=== PATIENT | female | born 1985 | race Caucasian/White ===

== ENCOUNTER → 2016-09-07 | Outpatient (CLI) | payer OTHER | LOC: MW.LAB 14:16 | PROVIDERS: ATTEND Obstetrics & Gynecology Reproductive Endocrinology | DX: Z31.7 Encounter for procreative management and counseling for gestational carrier (principal) | CPT/HCPCS: 36415; 84144 ==

== ENCOUNTER 2017-05-23 17:24 | Inpatient (IN) | payer BC ==
[2017-05-23] MEDS ORDERED: Methylergonovine 0.2 MG/1 ML Amp IM PRN (17:53)
[2017-05-23] MEDS ORDERED: Lidocaine 1% 50 ML MDV INJECT PRN (17:53)
[2017-05-23] MEDS ORDERED: Misoprostol 200 MCG Tab PO PRN (17:53)
[2017-05-23] MEDS ORDERED: Carboprost Tromethamine 250 MCG/1 ML Amp IM PRN (17:53)
[2017-05-23] MEDS ORDERED: Terbutaline 1 MG/ML SDV SUBCUT PRN (17:53)
[2017-05-23] MEDS ORDERED: Sodium Chloride 0.9% 10 ML Syringe FLUSH PRN (17:53)
[2017-05-23] MEDS ORDERED: Butorphanol 1 MG/ML SDV IVPUSH PRN (17:53)
[2017-05-23] MEDS ORDERED: Sodium Chloride 0.9% 2.5 ML Syringe FLUSH PRN (17:53)
[2017-05-23] MEDS ORDERED: Water For Irrigation,Sterile 1,000 ML Container IRR PRN (17:53)
[2017-05-23] MEDS ORDERED: Oxytocin/0.9 % Sodium Chloride 30 UNIT/500 ML BAG IV SCH ×2 (18:00)
[2017-05-23] MEDS ORDERED: Misoprostol 25 MCG (1/4 of 100 MCG) Tab VAG SCH (18:30)
[2017-05-23] MEDS ORDERED: Misoprostol 25 MCG (1/4 of 100 MCG) Tab VAG PRN (22:30)
[2017-05-24 00:14] LABS: CHLORIDE,CL 107 mmol/L (98-110); SODIUM,NA 138 mmol/L (136-146)
[2017-05-24] MEDS: Lactated Ringers 1,000 ML IV SCH ×2 (00:58→01:48)
[2017-05-24] MEDS ORDERED: fentaNYL 100 MCG/2 ML SDV ONE ×2 (01:05→06:08)
--- NOTE | 2017-05-24 01:56 | PCM.PREANE ---
Preanesthetic Assessment - Anesthesia/Transfusion/Family Hx Anesthesia History: Prior Anesthesia Without Reaction Family History of Anesthesia Reaction: No Transfusion History: Prior Transfusion Without Reaction - Review of Systems General: No Symptoms Pulmonary: No Symptoms Cardiovascular: No Symptoms Gastrointestinal: No Symptoms Neurological: No Symptoms Other: Reports: None - Physical Assessment NPO Status Date: 05/24/17 NPO Status Time: 01:52 (sips/chips) Height: 5 ft 3 in Weight: 208 lb ASA Class: 2 Mental Status: Alert & Oriented x3 Airway Class: Mallampati = 2 Dentition: Reports: Normal Dentition Thyro-Mental Finger Breadths: 3 Mouth Opening Finger Breadths: 3 ROM/Head Extension: Full Lungs: Clear to Auscultation, Normal Respiratory Effort Cardiovascular: Regular Rate, Regular Rhythm - Lab Values: Laboratory Last Values WBC 10.16 K/uL (4.0-11.0) 05/23/17 18:21 RBC 4.41 M/uL (4.30-5.90) 05/23/17 18:21 Hgb 12.3 g/dL (12.0-16.0) 05/23/17 18:21 Hct 36.7 % (36.0-46.0) 05/23/17 18:21 MCV 83.2 fL (80.0-98.0) 05/23/17 18:21 MCH 27.9 pg (27.0-32.0) 05/23/17 18:21 MCHC 33.5 g/dL (31.0-37.0) 05/23/17 18:21 RDW Std Deviation 44.8 fl (28.0-62.0) 05/23/17 18:21 RDW Coeff of Rene 15 % (11.0-15.0) 05/23/17 18:21 Plt Count 218 K/uL (150-400) 05/23/17 18:21 MPV 10.10 fL (7.40-12.00) 05/23/17 18:21 Nucleated RBC % 0.0 /100WBC 05/23/17 18:21 Nucleated RBCs # 0 K/uL 05/23/17 18:21 Sodium 138 mmol/L (136-146) 05/23/17 18:21 Potassium 3.6 mmol/L (3.5-5.1) 01/31/18 18:21 Chloride 107 mmol/L (98-110) 05/23/17 18:21 Carbon Dioxide 19 mmol/L (21-31) L 05/23/17 18:21 BUN 7 mg/dL (6.0-23.0) 05/23/17 18:21 Creatinine 0.6 mg/dL (0.6-1.5) 05/23/17 18:21 Est Cr Clr Drug Dosing 111.35 mL/min 05/23/17 18:21 Estimated GFR (MDRD) > 60.0 ml/min 05/23/17 18:21 Glucose 110 mg/dL (60-110) 05/23/17 18:21 Uric Acid 6.0 mg/dL (2.1-6.2) 05/23/17 18:21 Calcium 9.6 mg/dL (8.8-10.8) 05/23/17 18:21 Total Bilirubin 0.2 mg/dL (0.1-1.5) 05/23/17 18:21 AST 17 IU/L (5-40) 05/23/17 18:21 ALT 10 IU/L (8-54) 05/23/17 18:21 Alkaline Phosphatase 195 (40-150) H 05/23/17 18:21 Total Protein 6.8 g/dL (6.0-8.0) 05/23/17 18:21 Albumin 3.6 g/dL (3.5-5.0) 05/23/17 18:21 Globulin 3.2 g/dL (2.0-3.5) 05/23/17 18:21 Albumin/Globulin Ratio 1.1 (1.3-2.8) L 05/23/17 18:21 Blood Type B NEGATIVE 05/23/17 18:21 Antibody Screen NEGATIVE 05/23/17 18:21 - Allergies Allergies/Adverse Reactions: Allergies Allergy/AdvReac Type Severity Reaction Status Date / Time ciprofloxacin [From Cipro] Allergy Vomiting Verified 05/23/17 17:52 - Blood Blood Available: No Product(s) Available: None - Anesthesia Plan Free Text/Narrative:: Labor Epidural - pt states her last one req uired "6 sticks" - level L2-3 was successful this time, but her back was very tight and she was very deep (7.5 cm) - Acknowledgements Anesthesia Type Planned: Epidural Pt an Appropriate Candidate for the Planned Anesthesia: Yes Alternatives and Risks of Anesthesia Discussed w Pt/Guardian: Yes Pt/Guardian Understands and Agrees with Anesthesia Plan: Yes PreAnesthesia Questionnaire Cardiovascular History: Reports: Hypertension Gastrointestinal History: Reports: GERD Genitourinary History: Reports: STD [employer]ING [employer] MANAGER History: Reports: , Spontaneous Neurological History: Reports: Migraines Hematologic History: Reports: Anemia - Infectious Disease History Infectious Disease History: Reports: Chicken Pox - SUBSTANCE USE Smoking Status *Q: Never Smoker Recreational Drug Use History: No - CURRENT (IN HOUSE) MEDS Current Meds: Current Medications Butorphanol Tartrate (Stadol) 1 mg IVPUSH Q1H PRN PRN Reason: Pain Carboprost Tromethamine (Hemabate Ds) 250 mcg IM ASDIRECTED PRN PRN Reason: Post Hemorrhage Lactated Ringer's (Ringers, Lactated) 1,000 mls @ 150 mls/hr IV ASDIRECTED SERGEY Last Admin: 05/24/17 01:48 Dose: 999 mls/hr Oxytocin/Sodium Chloride (Oxytocin 30 Unit/500 Ml-Ns) 30 unit in 500 mls @ 999 mls/hr IV TITRATE SERGEY Oxytocin/Sodium Chloride (Oxytocin 30 Unit/500 Ml-Ns) 30 unit in 500 mls @ 2 mls/hr IV TITRATE SERGEY; 2 MUNITS/MIN PRN Reason: Protocol Lidocaine HCl (Xylocaine 1%) 50 ml INJECT .ONCE PRN PRN Reason: Laceration repair Methylergonovine Maleate (Methergine) 0.2 mg IM ASDIRECTED PRN PRN Reason: Post Hemorrhage Misoprostol (Cytotec) 200 mcg PO .ONCE PRN PRN Reason: Post Hemorrhage Misoprostol (Cytotec) 25 mcg VAG .ONCE SERGEY Last Admin: 05/23/17 18:38 Dose: 25 mcg Misoprostol (Cytotec) 25 mcg VAG Q4H PRN PRN Reason: Cervical Ripening Sodium Chloride (Saline Flush) 10 ml FLUSH ASDIRECTED PRN PRN Reason: Keep Vein Open Sodium Chloride (Saline Flush) 2.5 ml FLUSH ASDIRECTED PRN PRN Reason: Keep Vein Open Sterile Water (Sterile Water For Irrigation) 1,000 ml IRR ASDIRECTED PRN PRN Reason: delivery Terbutaline Sulfate (Brethine) 0.25 mg SUBCUT ASDIRECTED PRN PRN Reason: Tacysystole Discontinued Medications Fentanyl (Sublimaze) Confirm Administered Dose 100 mcg .ROUTE .[facility] ONE Stop: 05/24/17 01:06
[2017-05-24] MEDS ORDERED: Lidocaine 1% 2 ML ONE (06:08)
--- NOTE | 2017-05-24 06:37 | PCM.SN ---
- Free Text/Narrative Note: Anesthesia Note: When epidural initiated, pt seemed sensitive to medication, thus a rate of 5mL/ hr was infusing per pump and pt was comfortable. Discussed with pt if she had to use her bolus button more than once to have her nurse call me. 0530 - Arrive to pt stating 8/10 pain with contractions in her "vagina" - initially increased rate to 7mL/hr and bolused per pump a total of 17mL over 30 min. Pt also progressing rather quickly in this time period and pt verbalizing that she is not getting good relief. 0610 - Total of 100 mcg Fentanyl and 20 mg lidocaine per epidural - pt verbalizes that she is beginning to feel some relief. Also some difficulty d/t pt positioning for heart tones. 0635 - Additional bolus per pump - total of 10mL 0.125% Bupiv. Anesthesia at bedside continuously. Viable baby girl @ 0654.
[2017-05-24] MEDS ORDERED: Bisacodyl 10 MG Supp RECTAL PRN (07:24)
[2017-05-24] MEDS ORDERED: Acetaminophen 500 MG Tab PO PRN (07:24)
[2017-05-24] MEDS ORDERED: Ibuprofen 400 MG Tab PO PRN (07:24)
[2017-05-24] MEDS ORDERED: Lanolin 100% Cream 7 GM Tube TOP PRN (07:24)
[2017-05-24] MEDS ORDERED: Benzocaine/Menthol 20%-0.5% Spray 78 GM Cannister TOP PRN (07:24)
[2017-05-24] MEDS ORDERED: Witch Hazel Medicated Pads 40/Jar TOP PRN (07:24)
[2017-05-24] MEDS ORDERED: Docusate Sodium 100 MG Cap PO PRN (07:24)
[2017-05-24] MEDS: Ibuprofen 800 MG Tab PO PRN ×2 (08:04→18:07)
[2017-05-24] MEDS: oxyCODONE 5 MG Tab PO PRN ×4 (08:05→18:08)
[2017-05-24] MEDS ORDERED: Ondansetron 4 MG/2 ML SDV IVPUSH PRN (10:35)
[2017-05-24] MEDS: Acetaminophen 500 MG Tab PO PRN (11:39)
--- NOTE | 2017-05-24 14:49 | OR ---
SURGEON: Paola Nielson MD DATE OF PROCEDURE: 05/24/2017 PREOPERATIVE DIAGNOSES: 1. Intrauterine at 39 weeks gestation. 2. Elective induction of labor. POSTOPERATIVE DIAGNOSES: 1. Intrauterine at 39 weeks gestation. 2. Elective induction of labor. 3. Delivered. PROCEDURE: Spontaneous vaginal delivery. ANESTHESIA: Epidural. ESTIMATED BLOOD LOSS: 250 mL. COMPLICATIONS: None. DISPOSITION: Mother and baby are stable. FINDINGS: Female , weight 2750 g, scores 9 and 9 at 1 and 5 minutes respectively. Grossly normal placenta with 3-vessel cord. Intact perineum. Left labial hematoma approximately 4 x 3 cm. BRIEF HISTORY: Sri is a 31-year-old G5, P2-0-0-2, who was admitted overnight for induction of labor. She is a gestational carrier and her cause has remained uncomplicated with a negative GBS status. On admission last evening, she was 1 to 2 cm dilated and received one dose of Cytotec, after which 6 hours after she progressed to 2 to 3 cm and was requesting epidural, which she received. After the epidural was inserted, oxytocin was commenced. Two hours after, spontaneous rupture of membranes occurred with clear amniotic fluid noted. At that time, she was 3 to 4 cm. Thereafter, she did make very rapid change and progressed to 9 cm within next 2 hours. With the rapid change and the rapid descent of the head into the pelvis, there were very deep variable decelerations down to the 60s lasting over 1 to 2 minutes with recovered back to original baseline. The oxytocin infusion, which was at 8 milliunits at that time, was stopped. The maternal position was changed and oxygen was commenced. I was notified and upon my arrival, I examined her, she had an anterior lip, which I was able to reduce easily and she commenced active pushing. She was then set up for delivery in modified dorsal lithotomy position. DESCRIPTION OF PROCEDURE: She had spontaneous vaginal delivery of a live female in occipital anterior position. Loose nuchal cord was reduced at the delivery, clear amniotic fluid over an intact perineum. Anterior and posterior shoulder and the rest of the baby were delivered without difficulty. Baby was vigorous and cried spontaneously at . The oropharynx and the nostrils were bulb suctioned on the perineum. Delayed cord clamping was performed and the cord was subsequently cut by the father of the baby. The infant was then handed over to nursery nurse. With delivery of the , oxytocin infusion was recommenced, titration for active management of third stage of labor. Cord blood and gas samples were obtained. The placenta was delivered by controlled cord traction appeared to be complete and intact. Vigorous uterine massage was performed. The uterus was found to be well contracted at the umbilicus. Examination of the perineum revealed no lacerations, but there was a left labial hematoma measuring about 4 x 3 cm. It was noted to be stable and not expanding, so it was left well alone. The patient tolerated the procedure well. Sponge, instrument, and needle counts were correct at the end of the delivery. ADUMVIV / MODL /[id number] MTDD
[2017-05-24] MEDS: Ondansetron 4 MG Tab.DIS PO PRN (18:07)
[2017-05-25] MEDS: Ibuprofen 800 MG Tab PO PRN (01:24)
[2017-05-25 06:12] LABS: CHLORIDE,CL 109 mmol/L (98-110); SODIUM,NA 139 mmol/L (136-146)
[2017-05-25] MEDS: Acetaminophen 500 MG Tab PO PRN (08:08)
--- NOTE | 2017-05-25 08:08 | PCM.PNPP ---
<Adriana Cantu - Last Filed: 05/25/17 08:02> - General Info Date of Service: 05/25/17 Functional Status: Reports: Pain Controlled, Tolerating Diet, Ambulating, Urinating - Review of Systems General: Denies: Fever, Weakness, Fatigue HEENT: Reports: Headaches Pulmonary: Denies: Shortness of Breath, Pleuritic Chest Pain, Cough Cardiovascular: Denies: Chest Pain, Palpitations, Dyspnea on Exertion Gastrointestinal: Denies: Abdominal Pain Genitourinary: Denies: Dysuria - General Info Date of Service: 05/25/17 - Patient Data Vital Signs - Most Recent: Last Vital Signs Temp 36.4 C 05/25/17 05:12 Pulse 80 05/25/17 05:12 Resp 17 05/25/17 05:12 BP 123/72 05/25/17 05:12 Pulse Ox 97 05/25/17 05:12 Weight - Most Recent: 94.347 kg Lab Results - Last 24 Hours: Laboratory Results - last 24 hr 05/24/17 05/24/17 05/25/17 Range/Units 06:54 08:33 05:09 WBC 8.74 (4.0-11.0) K/uL RBC 3.48 L (4.30-5.90) M/uL Hgb 9.7 L (12.0-16.0) g/dL Hct 29.0 L (36.0-46.0) % MCV 83.3 (80.0-98.0) fL MCH 27.9 (27.0-32.0) pg MCHC 33.4 (31.0-37.0) g/dL RDW Std Deviation 45.1 (28.0-62.0) fl RDW Coeff of Rene 15 (11.0-15.0) % Plt Count 151 (150-400) K/uL MPV 9.50 (7.40-12.00) fL Neut % (Auto) 65.7 (48.0-80.0) % Lymph % (Auto) 26.2 (16.0-40.0) % Bonner % (Auto) 6.3 (0.0-15.0) % Eos % (Auto) 1.7 (0.0-7.0) % Baso % (Auto) 0.1 (0.0-1.5) % Neut # (Auto) 5.7 (1.4-5.7) K/uL Lymph # (Auto) 2.3 (0.6-2.4) K/uL Bonner # (Auto) 0.6 (0.0-0.8) K/uL Eos # (Auto) 0.2 (0.0-0.7) K/uL Baso # (Auto) 0.0 (0.0-0.1) K/uL Nucleated RBC % 0.0 /100WBC Nucleated RBCs # 0 K/uL Cord ABG pH 7.224 (7.18-7.38) Cord ABG Base Excess -6 (-10--2) Cord VBG pH 7.301 (7.25-7.45) Cord VBG Base Excess -6 (-10--2) Sodium (136-146) mmol/L Potassium (3.5-5.1) mmol/L Chloride (98-110) mmol/L Carbon Dioxide (21-31) mmol/L BUN (6.0-23.0) mg/dL Creatinine (0.6-1.5) mg/dL Est Cr Clr Drug Dosing mL/min Estimated GFR (MDRD) ml/min Glucose (60-110) mg/dL Calcium (8.8-10.8) mg/dL Total Bilirubin (0.1-1.5) mg/dL AST (5-40) IU/L ALT (8-54) IU/L Alkaline Phosphatase (40-150) Total Protein (6.0-8.0) g/dL Albumin (3.5-5.0) g/dL Globulin (2.0-3.5) g/dL Albumin/Globulin Ratio (1.3-2.8) Screen NEGATIVE (NEGATIVE) RhIG Candidate? YES Rhogam Indicated YES, BABY RH POS H 05/25/17 Range/Units 05:09 WBC (4.0-11.0) K/uL RBC (4.30-5.90) M/uL Hgb (12.0-16.0) g/dL Hct (36.0-46.0) % MCV (80.0-98.0) fL MCH (27.0-32.0) pg MCHC (31.0-37.0) g/dL RDW Std Deviation (28.0-62.0) fl RDW Coeff of Rene (11.0-15.0) % Plt Count (150-400) K/uL MPV (7.40-12.00) fL Neut % (Auto) (48.0-80.0) % Lymph % (Auto) (16.0-40.0) % Bonner % (Auto) (0.0-15.0) % Eos % (Auto) (0.0-7.0) % Baso % (Auto) (0.0-1.5) % Neut # (Auto) (1.4-5.7) K/uL Lymph # (Auto) (0.6-2.4) K/uL Bonner # (Auto) (0.0-0.8) K/uL Eos # (Auto) (0.0-0.7) K/uL Baso # (Auto) (0.0-0.1) K/uL Nucleated RBC % /100WBC Nucleated RBCs # K/uL Cord ABG pH (7.18-7.38) Cord ABG Base Excess (-10--2) Cord VBG pH (7.25-7.45) Cord VBG Base Excess (-10--2) Sodium 139 (136-146) mmol/L Potassium 4.4 (3.5-5.1) mmol/L Chloride 109 (98-110) mmol/L Carbon Dioxide 22 (21-31) mmol/L BUN 5 L (6.0-23.0) mg/dL Creatinine 0.6 (0.6-1.5) mg/dL Est Cr Clr Drug Dosing 111.35 mL/min Estimated GFR (MDRD) > 60.0 ml/min Glucose 70 (60-110) mg/dL Calcium 8.4 L (8.8-10.8) mg/dL Total Bilirubin 0.1 (0.1-1.5) mg/dL AST 20 (5-40) IU/L ALT 11 (8-54) IU/L Alkaline Phosphatase 131 (40-150) Total Protein 5.1 L (6.0-8.0) g/dL Albumin 2.7 L (3.5-5.0) g/dL Globulin 2.4 (2.0-3.5) g/dL Albumin/Globulin Ratio 1.1 L (1.3-2.8) Screen (NEGATIVE) RhIG Candidate? Rhogam Indicated Med Orders - Current: Current Medications Acetaminophen (Tylenol Extra Strength) 500 mg PO Q4H PRN PRN Reason: Pain Acetaminophen (Tylenol Extra Strength) 1,000 mg PO Q4H PRN PRN Reason: Pain Last Admin: 05/24/17 11:39 Dose: 1,000 mg Benzocaine/Menthol (Dermoplast Pain Relief 20%-0.5% [place]) 78 gm TOP ASDIRECTED PRN PRN Reason: Perineal Comfort Measure Last Admin: 05/24/17 16:04 Dose: 1 tub Bisacodyl (Dulcolax) 10 mg RECTAL .ONCE PRN PRN Reason: Constipation Docusate Sodium (Colace) 100 mg PO BID PRN PRN Reason: Constipation Emollient Ointment (Lansinoh Hpa) 0 gm TOP ASDIRECTED PRN PRN Reason: Sore Nipples Ibuprofen (Motrin) 400 mg PO Q4H PRN PRN Reason: Pain Ibuprofen (Motrin) 800 mg PO Q6H PRN PRN Reason: Pain Last Admin: 05/25/17 01:24 Dose: 800 mg Ondansetron HCl (Zofran Odt) 4 mg PO Q6H PRN PRN Reason: Nausea/Vomiting Last Admin: 05/24/17 18:07 Dose: 4 mg Oxycodone HCl (Oxycodone) 5 mg PO Q2H PRN PRN Reason: Pain Last Admin: 05/24/17 18:08 Dose: 5 mg Witch Keesha (Tucks) 1 pad TOP ASDIRECTED PRN PRN Reason: comfort care Last Admin: 05/24/17 16:03 Dose: 1 applicful Discontinued Medications Butorphanol Tartrate (Stadol) 1 mg IVPUSH Q1H PRN PRN Reason: Pain Carboprost Tromethamine (Hemabate Ds) 250 mcg IM ASDIRECTED PRN PRN Reason: Post Hemorrhage Fentanyl (Sublimaze) Confirm Administered Dose 100 mcg .ROUTE .[facility] ONE Stop: 05/24/17 01:06 Fentanyl (Sublimaze) Confirm Administered Dose 100 mcg .ROUTE .[facility] ONE Stop: 05/24/17 06:09 Lactated Ringer's (Ringers, Lactated) 1,000 mls @ 150 mls/hr IV ASDIRECTED SERGEY Last Admin: 05/24/17 01:48 Dose: 999 mls/hr Oxytocin/Sodium Chloride (Oxytocin 30 Unit/500 Ml-Ns) 30 unit in 500 mls @ 999 mls/hr IV TITRATE SERGEY Oxytocin/Sodium Chloride (Oxytocin 30 Unit/500 Ml-Ns) 30 unit in 500 mls @ 2 mls/hr IV TITRATE SERGEY; 2 MUNITS/MIN PRN Reason: Protocol Last Titration: 05/24/17 04:07 Dose: 8 munits/min, 8 mls/hr Lidocaine HCl (Xylocaine-Mpf 1%) Confirm Administered Dose 2 mls @ as directed .ROUTE .[facility] ONE Stop: 05/24/17 06:09 Lidocaine HCl (Xylocaine 1%) 50 ml INJECT .ONCE PRN PRN Reason: Laceration repair Methylergonovine Maleate (Methergine) 0.2 mg IM ASDIRECTED PRN PRN Reason: Post Hemorrhage Misoprostol (Cytotec) 200 mcg PO .ONCE PRN PRN Reason: Post Hemorrhage Misoprostol (Cytotec) 25 mcg VAG .ONCE SERGEY Last Admin: 05/23/17 18:38 Dose: 25 mcg Misoprostol (Cytotec) 25 mcg VAG Q4H PRN PRN Reason: Cervical Ripening Ondansetron HCl (Zofran) 4 mg IVPUSH Q6H PRN PRN Reason: Nausea/Vomiting Last Admin: 05/24/17 11:02 Dose: 4 mg Sodium Chloride (Saline Flush) 10 ml FLUSH ASDIRECTED PRN PRN Reason: Keep Vein Open Sodium Chloride (Saline Flush) 2.5 ml FLUSH ASDIRECTED PRN PRN Reason: Keep Vein Open Sterile Water (Sterile Water For Irrigation) 1,000 ml IRR ASDIRECTED PRN PRN Reason: delivery Terbutaline Sulfate (Brethine) 0.25 mg SUBCUT ASDIRECTED PRN PRN Reason: Tacysystole - Infant Interaction Disposition, : Not Applicable Support Person: , Other (see below) - Recovery Exam Fundal Tone: Firm Fundal Level: 2 Fingerbreadths Below Umbilicus Fundal Placement: Midline Lochia Amount: Scant Lochia Color: Rubra/Red Perineum Description: Intact, Minimal Bruising/Swelling, Edematous, Hematoma ( left labia hematoma is stable ) Episiotomy/Laceration: None Urinary Elimination: Voided - Exam General: Alert, Oriented Lungs: Clear to Auscultation, Normal Respiratory Effort Cardiovascular: Regular Rate, Regular Rhythm GI/Abdominal Exam: Normal Bowel Sounds, No Distention Extremities: Normal Inspection, Pedal Edema (trace) Skin: Warm, Dry, Intact - Problem List & Annotations (1) Vaginal delivery SNOMED Code(s): 791978976 Code(s): O80 - ENCOUNTER FOR FULL-TERM UNCOMPLICATED DELIVERY Status: Acute Current Visit: Yes - Problem List Review Problem List Initiated/Reviewed/Updated: Yes - Assessment Assessment:: PPD #1 s/p . Patient complains of mild frontal headache. Vital signs are reassuring this AM. Denies vision changes or mid-epigastric pain. Will obtain cath UA. If normal discharge home today. - Plan Plan:: Continue routine post- cares. If UA is normal, discharge home today. Nothing in the vagina for 6 weeks. Can use OTC ibuprofen/tylenol as needed for pain. Continue PNV. Instructed patient to call if she develops fever greater than 101 or bleeding through a large pad an hour. BP check in 1 week. <Christine Mcmillan - Last Filed: 05/25/17 10:19> - Patient Data Vital Signs - Most Recent: Last Vital Signs Temp 36.4 C 05/25/17 05:12 Pulse 80 05/25/17 05:12 Resp 17 05/25/17 05:12 BP 123/72 05/25/17 05:12 Pulse Ox 97 05/25/17 05:12 I&O - Last 24 Hours: Intake & Output 05/24/17 05/25/17 05/25/17 22:59 06:59 14:59 Intake Total 0 Balance 0 Lab Results - Last 24 Hours: Laboratory Results - last 24 hr 05/24/17 05/24/17 05/25/17 Range/Units 06:54 08:33 05:09 WBC 8.74 (4.0-11.0) K/uL RBC 3.48 L (4.30-5.90) M/uL Hgb 9.7 L (12.0-16.0) g/dL Hct 29.0 L (36.0-46.0) % MCV 83.3 (80.0-98.0) fL MCH 27.9 (27.0-32.0) pg MCHC 33.4 (31.0-37.0) g/dL RDW Std Deviation 45.1 (28.0-62.0) fl RDW Coeff of Rene 15 (11.0-15.0) % Plt Count 151 (150-400) K/uL MPV 9.50 (7.40-12.00) fL Neut % (Auto) 65.7 (48.0-80.0) % Lymph % (Auto) 26.2 (16.0-40.0) % Bonner % (Auto) 6.3 (0.0-15.0) % Eos % (Auto) 1.7 (0.0-7.0) % Baso % (Auto) 0.1 (0.0-1.5) % Neut # (Auto) 5.7 (1.4-5.7) K/uL Lymph # (Auto) 2.3 (0.6-2.4) K/uL Bonner # (Auto) 0.6 (0.0-0.8) K/uL Eos # (Auto) 0.2 (0.0-0.7) K/uL Baso # (Auto) 0.0 (0.0-0.1) K/uL Nucleated RBC % 0.0 /100WBC Nucleated RBCs # 0 K/uL Cord ABG pH 7.224 (7.18-7.38) Cord ABG Base Excess -6 (-10--2) Cord VBG pH 7.301 (7.25-7.45) Cord VBG Base Excess -6 (-10--2) Sodium (136-146) mmol/L Potassium (3.5-5.1) mmol/L Chloride (98-110) mmol/L Carbon Dioxide (21-31) mmol/L BUN (6.0-23.0) mg/dL Creatinine (0.6-1.5) mg/dL Est Cr Clr Drug Dosing mL/min Estimated GFR (MDRD) ml/min Glucose (60-110) mg/dL Calcium (8.8-10.8) mg/dL Total Bilirubin (0.1-1.5) mg/dL AST (5-40) IU/L ALT (8-54) IU/L Alkaline Phosphatase (40-150) Total Protein (6.0-8.0) g/dL Albumin (3.5-5.0) g/dL Globulin (2.0-3.5) g/dL Albumin/Globulin Ratio (1.3-2.8) Screen NEGATIVE (NEGATIVE) RhIG Candidate? YES Rhogam Indicated YES, BABY RH POS H 05/25/17 Range/Units 05:09 WBC (4.0-11.0) K/uL RBC (4.30-5.90) M/uL Hgb (12.0-16.0) g/dL Hct (36.0-46.0) % MCV (80.0-98.0) fL MCH (27.0-32.0) pg MCHC (31.0-37.0) g/dL RDW Std Deviation (28.0-62.0) fl RDW Coeff of Rene (11.0-15.0) % Plt Count (150-400) K/uL MPV (7.40-12.00) fL Neut % (Auto) (48.0-80.0) % Lymph % (Auto) (16.0-40.0) % Bonner % (Auto) (0.0-15.0) % Eos % (Auto) (0.0-7.0) % Baso % (Auto) (0.0-1.5) % Neut # (Auto) (1.4-5.7) K/uL Lymph # (Auto) (0.6-2.4) K/uL Bonner # (Auto) (0.0-0.8) K/uL Eos # (Auto) (0.0-0.7) K/uL Baso # (Auto) (0.0-0.1) K/uL Nucleated RBC % /100WBC Nucleated RBCs # K/uL Cord ABG pH (7.18-7.38) Cord ABG Base Excess (-10--2) Cord VBG pH (7.25-7.45) Cord VBG Base Excess (-10--2) Sodium 139 (136-146) mmol/L Potassium 4.4 (3.5-5.1) mmol/L Chloride 109 (98-110) mmol/L Carbon Dioxide 22 (21-31) mmol/L BUN 5 L (6.0-23.0) mg/dL Creatinine 0.6 (0.6-1.5) mg/dL Est Cr Clr Drug Dosing 111.35 mL/min Estimated GFR (MDRD) > 60.0 ml/min Glucose 70 (60-110) mg/dL Calcium 8.4 L (8.8-10.8) mg/dL Total Bilirubin 0.1 (0.1-1.5) mg/dL AST 20 (5-40) IU/L ALT 11 (8-54) IU/L Alkaline Phosphatase 131 (40-150) Total Protein 5.1 L (6.0-8.0) g/dL Albumin 2.7 L (3.5-5.0) g/dL Globulin 2.4 (2.0-3.5) g/dL Albumin/Globulin Ratio 1.1 L (1.3-2.8) Screen (NEGATIVE) RhIG Candidate? Rhogam Indicated Med Orders - Current: Current Medications Acetaminophen (Tylenol Extra Strength) 500 mg PO Q4H PRN PRN Reason: Pain Acetaminophen (Tylenol Extra Strength) 1,000 mg PO Q4H PRN PRN Reason: Pain Last Admin: 05/25/17 08:08 Dose: 1,000 mg Benzocaine/Menthol (Dermoplast Pain Relief 20%-0.5% [place]) 78 gm TOP ASDIRECTED PRN PRN Reason: Perineal Comfort Measure Last Admin: 05/24/17 16:04 Dose: 1 tub Bisacodyl (Dulcolax) 10 mg RECTAL .ONCE PRN PRN Reason: Constipation Docusate Sodium (Colace) 100 mg PO BID PRN PRN Reason: Constipation Emollient Ointment (Lansinoh Hpa) 0 gm TOP ASDIRECTED PRN PRN Reason: Sore Nipples Ibuprofen (Motrin) 400 mg PO Q4H PRN PRN Reason: Pain Ibuprofen (Motrin) 800 mg PO Q6H PRN PRN Reason: Pain Last Admin: 05/25/17 01:24 Dose: 800 mg Ondansetron HCl (Zofran Odt) 4 mg PO Q6H PRN PRN Reason: Nausea/Vomiting Last Admin: 05/24/17 18:07 Dose: 4 mg Oxycodone HCl (Oxycodone) 5 mg PO Q2H PRN PRN Reason: Pain Last Admin: 05/25/17 08:49 Dose: 5 mg Witch Keesha (Tucks) 1 pad TOP ASDIRECTED PRN PRN Reason: comfort care Last Admin: 05/24/17 16:03 Dose: 1 applicful Discontinued Medications Butorphanol Tartrate (Stadol) 1 mg IVPUSH Q1H PRN PRN Reason: Pain Carboprost Tromethamine (Hemabate Ds) 250 mcg IM ASDIRECTED PRN PRN Reason: Post Hemorrhage Fentanyl (Sublimaze) Confirm Administered Dose 100 mcg .ROUTE .STK-MED ONE Stop: 05/24/17 01:06 Fentanyl (Sublimaze) Confirm Administered Dose 100 mcg .ROUTE .[employer]-MED ONE Stop: 05/24/17 06:09 Lactated Ringer's (Ringers, Lactated) 1,000 mls @ 150 mls/hr IV ASDIRECTED SERGEY Last Admin: 05/24/17 01:48 Dose: 999 mls/hr Oxytocin/Sodium Chloride (Oxytocin 30 Unit/500 Ml-Ns) 30 unit in 500 mls @ 999 mls/hr IV TITRATE SERGEY Oxytocin/Sodium Chloride (Oxytocin 30 Unit/500 Ml-Ns) 30 unit in 500 mls @ 2 mls/hr IV TITRATE SERGEY; 2 MUNITS/MIN PRN Reason: Protocol Last Titration: 05/24/17 04:07 Dose: 8 munits/min, 8 mls/hr Lidocaine HCl (Xylocaine-Mpf 1%) Confirm Administered Dose 2 mls @ as directed .ROUTE .STK-MED ONE Stop: 05/24/17 06:09 Lidocaine HCl (Xylocaine 1%) 50 ml INJECT .ONCE PRN PRN Reason: Laceration repair Methylergonovine Maleate (Methergine) 0.2 mg IM ASDIRECTED PRN PRN Reason: Post Hemorrhage Misoprostol (Cytotec) 200 mcg PO .ONCE PRN PRN Reason: Post Hemorrhage Misoprostol (Cytotec) 25 mcg VAG .ONCE SERGEY Last Admin: 05/23/17 18:38 Dose: 25 mcg Misoprostol (Cytotec) 25 mcg VAG Q4H PRN PRN Reason: Cervical Ripening Ondansetron HCl (Zofran) 4 mg IVPUSH Q6H PRN PRN Reason: Nausea/Vomiting Last Admin: 05/24/17 11:02 Dose: 4 mg Sodium Chloride (Saline Flush) 10 ml FLUSH ASDIRECTED PRN PRN Reason: Keep Vein Open Sodium Chloride (Saline Flush) 2.5 ml FLUSH ASDIRECTED PRN PRN Reason: Keep Vein Open Sterile Water (Sterile Water For Irrigation) 1,000 ml IRR ASDIRECTED PRN PRN Reason: delivery Terbutaline Sulfate (Brethine) 0.25 mg SUBCUT ASDIRECTED PRN PRN Reason: Tacysystole - My Orders Last 24 Hours: My Active Orders 05/24/17 17:49 Ondansetron [Zofran ODT] 4 mg PO Q6H PRN 05/25/17 09:52 UA W/O MICROSCOPIC [URIN] Routine - Plan Plan:: Awaiting cath UA, patient is denying headache/visual changes. Disposition based upon this result.
[2017-05-25] MEDS: oxyCODONE 5 MG Tab PO PRN (08:49)
[2017-05-25] MEDS: Ondansetron 4 MG Tab.DIS PO PRN (10:38)
== END 2017-05-25 11:15 | disposition home or self-care (01) | DRG 560 ==
LOC: MW.OBCHECK 17:24 → MW.OB 17:25 → MW.OBCHECK 17:44 → MW.OB 17:44 → OBSVTOIN 05-24 06:54
PROVIDERS: ADMIT Obstetrics & Gynecology; ATTEND Obstetrics & Gynecology
PROC: 10E0XZZ Delivery of Products of Conception, External Approach (ICD-10-PCS; principal; 2017-05-24)
PROC: 3E0P7VZ Introduction of Hormone into Female Reproductive, Via Natural or Artificial Opening (ICD-10-PCS; 2017-05-24)
DX: O80 Encounter for full-term uncomplicated delivery (principal); R51 Headache; Z3A.38 38 weeks gestation of pregnancy; Z37.0 Single live birth
CPT/HCPCS: 36415; 51702; 59025; 59409; 80053; 81003; 82803; 84550; 85025; 85027; 85460; 86850; 86900; 86901; A9270-GY; J2405; J2590; J2790; J3010; J7120